=== PATIENT | female | born 1955 | race Caucasian/White ===

== ENCOUNTER 2018-04-02 16:13 | Emergency (ER) | payer SELFPAY ==
--- NOTE | 2018-04-02 17:11 | RAD ---
Procedure: XR CHEST 1 VIEW Exam Date: 04/02/2018 Ordering Provider: Teerll Chanel Clinical Indication: CHEST PAIN Comparison: 03/24/2009 Findings: Heart is not enlarged. Right hilar fullness may represent lymphadenopathy or a mass. No focal lung consolidation. No pleural effusion. No pneumothorax. No acute osseous abnormality. Impression: 1. Right hilar fullness is new compared to prior and may represent lymphadenopathy or possibly a mass. Further evaluation with contrast enhanced CT chest is recommended. Electronically signed by: Jorge A Rodas MD 04/02/2018 5:08 PM DIE CAST OPERATOR
--- NOTE | 2018-04-02 17:12 | ED.PDOC ---
History of Present Illness - General Chief Complaint: Respiratory Problem Time Seen by Provider: 04/02/18 16:29 Source: patient Exam Limitations: no limitations - History of Present Illness Comments: COUGH AND CHEST PAIN AND LOW GRADE FEVER. THE PATIENT ALSO C/O MYALGIAS. SHE VOICES THAT IN 2012 SHE WAS DIAGNOSED WITH CANCER OF THE HEART, LIVER AND SPLEEN AND RECIEVED CHEMOTHERAPY AND NOW IS IN REMISSION. SHE LOCALLY SEES DR. JOHNSON. THE CHEST PAIN SEEMS TO BE ASSOCIATED WITH THE COUGH BUT SHE DESCRIBES IT PRESSURE TYPE. SHE HAS HAD PNEUMONIA IN THE PAST AND DESIRES TO BE SURE THAT THIS IS NOT THE CASE. Timing/Duration: this morning Cough Quality/Degree: dry cough Possible Cause: no prior episodes Improving Factors: nothing Worsening Factors: nothing Associated Symptoms: cough, fever/chills, muscle aches Respiratory Risk Factors: no cause identified Allergies/Adverse Reactions: Allergies Acetaminophen [From Vicodin] Allergy (Verified 04/02/18 18:14) Aspartame Allergy (Verified 04/02/18 18:14) Cephalexin [From Keflex] Allergy (Verified 04/02/18 18:14) Erythromycin Allergy (Verified 04/02/18 18:14) Gentamicin Allergy (Verified 04/02/18 18:14) Hydrocodone Allergy (Verified 04/02/18 18:14) Iodine Allergy (Verified 04/02/18 18:14) Morphine Allergy (Verified 04/02/18 18:14) Penicillins Allergy (Verified 04/02/18 18:14) Shellfish Allergy Allergy (Verified 04/02/18 16:49) Tetracycline Allergy (Verified 04/02/18 18:14) Home Medications: Ambulatory Orders Azithromycin [Zithromax Z-Jamal] 250 mg PO DAILY #6 tab 04/02/18 Review of Systems - Review of Systems Constitutional: States: no symptoms reported, fever EENTM: States: no symptoms reported Respiratory: States: cough, short of breath Cardiology: States: chest pain Gastrointestinal/Abdominal: States: no symptoms reported Genitourinary: States: no symptoms reported Musculoskeletal: States: no symptoms reported Skin: States: no symptoms reported Neurological: States: no symptoms reported Endocrine: States: no symptoms reported Hematologic/Lymphatic: States: no symptoms reported Family Medical History - Family History Mother Family History: No Known Physical Exam - Physical Exam General Appearance: Alert, Well Developed, Well Groomed Eye Exam: bilateral normal ENT Exam: normal ENT inspection Neck: non-tender, full range of motion Respiratory: rhonchi, wheezing Cardiovascular/Chest: normal peripheral pulses, regular rate, rhythm, no edema, no gallop Gastrointestinal/Abdominal: normal bowel sounds, non tender, soft, no organomegaly Extremity: normal range of motion, non-tender, normal inspection, no pedal edema Neurologic: alert, oriented x 3 Skin Exam: normal color Progress - Results/Orders Results/Orders: 04/02/18 16:45 EKG STAT 04/02/18 18:33 Hold Metformin x 48Hrs [id number] Laboratory Results WBC 4.7 K/mm3 (4.8-10.8) L 04/02/18 18:05 RBC 4.77 M/mm3 (4.20-5.40) 04/02/18 18:05 Hgb 12.9 gm/dL (12.0-16.0) 04/02/18 18:05 Hct 39.9 % (36.0-47.0) 04/02/18 18:05 MCV 83.7 fl (81.0-99.0) 04/02/18 18:05 MCH 27.1 pg (27.0-31.0) 04/02/18 18:05 MCHC 32.4 g/dL (33.0-37.0) L 04/02/18 18:05 RDW 15.7 % (11.5-14.5) H 04/02/18 18:05 Plt Count 137 K/mm3 (130-400) 04/02/18 18:05 MPV 7.8 fl (7.40-10.4) 04/02/18 18:05 Absolute Neuts (auto) Not Reportable 04/02/18 18:05 Absolute Lymphs (auto) Not Reportable 04/02/18 18:05 Absolute Monos (auto) Not Reportable 04/02/18 18:05 Absolute Eos (auto) Not Reportable 04/02/18 18:05 Neutrophils % Not Reportable 04/02/18 18:05 Neutrophils % (Manual) 75.0 % (42.0-78.0) 04/02/18 18:05 Lymphocytes % Not Reportable 04/02/18 18:05 Lymphocytes % (Manual) 14.0 % 04/02/18 18:05 Monocytes % Not Reportable 04/02/18 18:05 Monocytes % (Manual) 7.0 % 04/02/18 18:05 Eosinophils % Not Reportable 04/02/18 18:05 Basophils % Not Reportable 04/02/18 18:05 Band Neutrophils 4.0 % (0-2) H 04/02/18 18:05 Platelet Estimate Normal (NORMAL) 04/02/18 18:05 Normal RBC Morphology Normal rbc morph 04/02/18 18:05 Sodium 136 mmol/L (135-145) 04/02/18 18:05 Potassium 4.1 mmol/L (3.6-5.0) 04/02/18 18:05 Chloride 99 mmol/L (101-111) L 04/02/18 18:05 Carbon Dioxide 25 mmol/L (21-31) 04/02/18 18:05 Anion Gap 16.1 (12-18) 04/02/18 18:05 BUN 15 mg/dL (7-18) 04/02/18 18:05 Creatinine 1.11 mg/dL (0.6-1.3) 04/02/18 18:05 BUN/Creatinine Ratio 13.5 (10-20) 04/02/18 18:05 Random Glucose 108 mg/dL (70-105) H 04/02/18 18:05 Serum Osmolality 273.3 mOsm/L (275-295) L 04/02/18 18:05 Calcium 8.8 mg/dL (8.4-10.2) 04/02/18 18:05 Total Bilirubin 0.5 mg/dL (0.2-1.0) 04/02/18 18:05 AST 21 IU/L (10-42) 04/02/18 18:05 ALT 18 IU/L (10-60) 04/02/18 18:05 Alkaline Phosphatase 50 IU/L (42-121) 04/02/18 18:05 Troponin I < 0.02 ng/mL (0.01-0.05) 04/02/18 18:05 B-Natriuretic Peptide 28.0 pg/ml (0-100) 04/02/18 18:05 Serum Total Protein 7.5 gm/dL (6.4-8.2) 04/02/18 18:05 Albumin 3.8 g/dl (3.2-5.5) 04/02/18 18:05 Globulin 3.7 gm/dL (2.3-3.5) H 04/02/18 18:05 Albumin/Globulin Ratio 1.0 (1.1-1.9) L 04/02/18 18:05 Serum HCG, Qual Negative 04/02/18 19:54 THE CHEST X RAY REVEALS A RIGHT PERIHILAR MASS. CT WAS RECOMMENDED THE CT OF THE CHEST REVEALS A MASS ON THE RIGHT HILAR AREA. RADIOLOGIST SAYS MALIGNANCY UNTIL PROVEN OTHERWISE. I HAVE SOPEN AT LENGTH WITH THE PATIENT AND HER . WILL GET COPY OF THE CT AND THE PATIENT SHPOULD SEE DR. GUEVARA ADAM- Departure - Departure Clinical Impression: Mass of hilum, Bronchitis Time of Disposition: 21:44 Disposition: Discharge to Home or Self Care Departure Forms: ED Discharge - Pt. Copy, Patient Portal Self Enrollment Instructions: Acute Bronchitis Referrals: FELIX WELSH [Primary Care Provider] - 1-2 Weeks Prescriptions: Azithromycin [Zithromax Z-Jamal] 250 mg PO DAILY #6 tab Home Medications: Ambulatory Orders Azithromycin [Zithromax Z-Jamal] 250 mg PO DAILY #6 tab 04/02/18 Additional Instructions: CALL DR. GUEVARA IN THE AM FOR APPT.
[2018-04-02] MEDS ORDERED: IBUPROFEN 200 MG TAB ONE (18:13)
[2018-04-02] MEDS ORDERED: IBUPROFEN 200 MG TAB PO ONE (18:15)
[2018-04-02] MEDS ORDERED: ACETAMINOPHEN 500 MG TAB PO ONE (18:33)
--- NOTE | 2018-04-02 20:41 | CT ---
PROCEDURE: Chest w/o Contrast CLINICAL HISTORY: 63 years Female RIGHT HILAR FULLNESS COMPARISON: Chest x-ray 04/02/2018 TECHNIQUE: Contiguous axial images obtained through the chest without IV contrast. Reformatted images obtained. This exam was performed according to our department optimization program which includes automated exposure control, adjustment of the mA and/or kv according to patient size and/or use of iterative reconstruction technique. FINDINGS: Calcification in the aorta and in the coronary arteries. No evidence of pericardial or pleural effusion. There is a multilobular soft tissue mass or masses in the right upper lobe which measures 5.4 x 3.4 cm and appears to be contiguous with hilar adenopathy. Mildly enlarged mediastinal lymph nodes are present. No left hilar adenopathy is noted. There is a complex irregular lesion in the spleen and in the adjacent subphrenic fat. Question atypical hemangioma, sequela of previous hemorrhage or trauma or infection versus malignancy including metastatic focus. IMPRESSION: Multilobular right upper lobe mass which is contiguous with right hilar adenopathy. Findings suggest malignancy until proven otherwise Enlarged right hilar and mediastinal lymph nodes Complex irregular peripherally calcified lesion in the spleen and subphrenic space of uncertain clinical significance. Possibility of metastatic focus or malignancy is not excluded. Consider further evaluation with MRI Electronically signed by: Zina Murdock MD 04/02/2018 8:38 PM PNEUMATIC SYSTEMS OPERATOR
[2018-04-02 21:59] VITALS: BP 123/74; TEMP 99.8; O2SAT 94
== END 2018-04-02 21:58 | disposition home or self-care (01) ==
LOC: ER 16:13
DX: J40 Bronchitis, not specified as acute or chronic (principal); R91.8 Other nonspecific abnormal finding of lung field; Z92.21 Personal history of antineoplastic chemotherapy; Z85.05 Personal history of malignant neoplasm of liver; Z85.09 Personal history of malignant neoplasm of other digestive organs; Z85.89 Personal history of malignant neoplasm of other organs and systems; Z87.01 Personal history of pneumonia (recurrent); Z88.6 Allergy status to analgesic agent; Z88.1 Allergy status to other antibiotic agents; Z88.8 Allergy status to other drugs, medicaments and biological substances; Z91.041 Radiographic dye allergy status; Z88.0 Allergy status to penicillin; Z91.013 Allergy to seafood

== ENCOUNTER → 2020-03-18 | Outpatient (CLI) | payer BC | LOC: BFHH 09:14 | PROVIDERS: ATTEND Emergency Medicine | DX: D72.829 Elevated white blood cell count, unspecified (principal) ==

== ENCOUNTER 2020-03-22 16:11 | Emergency (ER) | payer MEDICARE, BC ==
[2020-03-22] MEDS ORDERED: SODIUM CHLORIDE 0.9% 1000ML 1,000 ML IVS ONE (16:24)
[2020-03-22] MEDS ORDERED: ACETAMINOPHEN 500 MG TAB PO ONE (16:24)
[2020-03-22] MEDS ORDERED: SODIUM CHLORIDE 0.9% (FLUSH) 10 ML SYG IV PRN (16:24)
[2020-03-22] MEDS ORDERED: MEROPENEM 1 GM in SODIUM CHL 0.9% 50ML MIN-BAG+ 50 ML IVPB ONE (16:28)
--- NOTE | 2020-03-22 16:32 | ED.PDOC ---
History of Present Illness - General Time Seen by Provider: 03/22/20 16:17 Source: patient, RN notes reviewed, Vital Signs reviewed, family, old records Exam Limitations: no limitations - History of Present Illness Initial Comments: Pt is a 65 yo female with PMH of lymphoma who has undergone several rounds of chemotherapy, the last was in October 2019, and had stem cell treatment placed in November of 2019. States she was diagnosed with COVID 4 weeks ago and symptoms have resolved. She went to a scheduled appointment with her PCP to receive IVF today and her O2 sat was in 70's and temp of 102 so she was sent to ED for evaluation. Pt states for the past few days she gets very SOB and starts coughing whenever she walks. She denies fever, abdominal pain, dysuria, LIZAMA, stiff neck or CP. States she is on 2L O2 at home continuously. Allergies/Adverse Reactions: Allergies Aspartame Allergy (Verified 04/02/18 18:14) Azithromycin Allergy (Verified 03/22/20 16:31) Cephalexin [From Keflex] Allergy (Verified 04/02/18 18:14) Doxycycline Allergy (Verified 03/22/20 16:31) Erythromycin Allergy (Verified 04/02/18 18:14) Gentamicin Allergy (Verified 04/02/18 18:14) Hydrocodone Allergy (Verified 04/02/18 18:14) Iodine Allergy (Verified 04/02/18 18:14) Morphine Allergy (Verified 04/02/18 18:14) Penicillins Allergy (Verified 04/02/18 18:14) Shellfish Allergy Allergy (Verified 04/02/18 16:49) Tetracycline Allergy (Verified 04/02/18 18:14) Home Medications: Ambulatory Orders Nystatin Suspension [Nystatin] 5 ml MT Q6H 03/22/20 Review of Systems - Review of Systems Constitutional: States: fever, malaise. Denies: chills EENTM: Denies: ear pain, nose congestion, throat pain Respiratory: States: cough, short of breath. Denies: wheezing Cardiology: Denies: chest pain, palpitations, syncope Gastrointestinal/Abdominal: Denies: abdominal pain, nausea, vomiting Genitourinary: Denies: dysuria, frequency, hematuria Musculoskeletal: Denies: back pain, neck pain Skin: Denies: rash Neurological: Denies: headache, numbness All other Systems: Reviewed and Negative Past Medical History (General) - Patient Medical History Hx Cardiac Disorders: Yes - mi Hx Cancer: Yes Family Medical History - Family History Mother Family History: No Known Physical Exam - Physical Exam General Appearance: Alert, Comfortable, Other - Appears older than stated age Ears, Nose, Throat: normal pharynx Neck: non-tender, full range of motion, supple, other - No meningismus Respiratory: chest non-tender, lungs clear, normal breath sounds, no respiratory distress Cardiovascular/Chest: normal peripheral pulses, regular rate, rhythm, no edema Gastrointestinal/Abdominal: non tender, soft, no pulsatile mass Back Exam: no CVA tenderness, no vertebral tenderness Extremity: normal range of motion, non-tender, no pedal edema Neurologic: no motor/sensory deficits, alert, normal mood/affect, oriented x 3 Skin Exam: normal color, warm/dry Progress - Progress Progress: 03/22/20 16:37 Pt presents with fever, hypoxia concerning for sepsis. IVF and antibiotics given per sepsis protocol and will evaluate with labs and imaging. 03/22/20 17:42 Pt feels improved post IVF. BP improved and tachycardia resolved. CXR concerning for pneumonia. Pt has tested positive for COVID here. States she tested positive for COVID four weeks ago and was treated with Remdesivir and is currently being treated for oral and esophageal thrush that she got after taking antibiotics for C Diff 1 month ago. Pt has sepsis, pneumonia and COVID as well as chronic immune suppression. She requests transfer to [facility] as that is where her Oncologist, Dr. Gupta, and other specialists are. I discussed pt with Dr. Iraheta earlier in this visit through patient 's cell phone, he recommended transfer to [facility] and he would consult. Will consult transfer line. 03/22/20 18:32 Pt BP improved. States her usual BP in 100/50. Had one episode of hypotension with SBP 78 that responded to IVF. Awaiting return call from transfer line. 03/22/20 18:40 D/W Dr. Brito via [facility] Transfer line and accepts to [facility]. Requests CTA chest to r/o PE. 03/22/20 19:19 Pt is allergic to IV contrast and will cancel CTA chest. May need VQ scan at accepting facility 03/22/20 19:29 Ua shows 5-10 WBC. Cultures sent. Has received Merrem. - Results/Orders Results/Orders: EKG-sinus tachycardia, rate 103, nml intervals, nonspecific ST abnormality CHEST XRAY FINDINGS: Cardiac silhouette is within normal limits. There are bilateral consolidations. Lung volumes are low. IMPRESSION: Bilateral consolidations. 03/22/20 16:24 EKG Stat Pulse Ox Stat 03/22/20 16:45 BLOOD CULTURE Stat 03/22/20 18:34 URINE CULTURE W/COLONY COUNT Stat Laboratory Results - last 24 hr 03/22/20 03/22/20 03/22/20 16:24 16:35 16:35 WBC 4.0 L RBC 3.17 L Hgb 8.6 L Hct 26.2 L MCV 82.8 MCH 27.2 MCHC 32.8 L RDW 17.3 H Plt Count 79 L MPV 8.9 Absolute Neuts (auto) 3.10 Absolute Lymphs (auto) 0.60 L Absolute Monos (auto) 0.30 Absolute Eos (auto) 0.00 Absolute Basos (auto) 0.00 Neutrophils % 76.2 Lymphocytes % 14.8 L Monocytes % 7.5 Eosinophils % 0.9 L Basophils % 0.6 PT 11.5 H INR 1.16 H PTT (SP) 27.6 D-Dimer, Quantitative 405.0 H Sodium 134 L Potassium 3.0 L Chloride 93 L Carbon Dioxide 29 Anion Gap 15.0 BUN 7 Creatinine 0.75 BUN/Creatinine Ratio 9.3 L Random Glucose 95 Serum Osmolality 266.0 L Lactic Acid Calcium 8.0 L Total Bilirubin 0.9 AST 25 ALT 19 Alkaline Phosphatase 49 Creatine Kinase 24 L CK-MB (CK-2) 0.5 CK-MB (CK-2) % Not Reportable Troponin I 0.02 Serum Total Protein 5.6 L Albumin 2.8 L Globulin 2.8 Albumin/Globulin Ratio 1.0 L Urine Color Urine Appearance Urine pH Ur Specific [place] Urine Protein Urine Glucose (UA) Urine Ketones Urine Blood Urine Nitrite Urine Bilirubin Urine Urobilinogen Ur Leukocyte Esterase Urine RBC Urine WBC Ur Epithelial Cells Urine Bacteria C. difficile Tox (PCR) 03/22/20 03/22/20 03/22/20 16:35 18:15 18:34 WBC RBC Hgb Hct MCV MCH MCHC RDW Plt Count MPV Absolute Neuts (auto) Absolute Lymphs (auto) Absolute Monos (auto) Absolute Eos (auto) Absolute Basos (auto) Neutrophils % Lymphocytes % Monocytes % Eosinophils % Basophils % PT INR PTT (SP) D-Dimer, Quantitative Sodium Potassium Chloride Carbon Dioxide Anion Gap BUN Creatinine BUN/Creatinine Ratio Random Glucose Serum Osmolality Lactic Acid 1.3 0.9 Calcium Total Bilirubin AST ALT Alkaline Phosphatase Creatine Kinase CK-MB (CK-2) CK-MB (CK-2) % Troponin I Serum Total Protein Albumin Globulin Albumin/Globulin Ratio Urine Color Yellow Urine Appearance Clear Urine pH 5.5 Ur Specific [place] 1.015 Urine Protein Negative Urine Glucose (UA) Negative Urine Ketones 15 H Urine Blood Negative Urine Nitrite Positive H Urine Bilirubin Negative Urine Urobilinogen 0.2 Ur Leukocyte Esterase Small H Urine RBC 0 Urine WBC 10-20 H Ur Epithelial Cells 5-10 Urine Bacteria 1+ C. difficile Tox (PCR) 03/22/20 22:05 WBC RBC Hgb Hct MCV MCH MCHC RDW Plt Count MPV Absolute Neuts (auto) Absolute Lymphs (auto) Absolute Monos (auto) Absolute Eos (auto) Absolute Basos (auto) Neutrophils % Lymphocytes % Monocytes % Eosinophils % Basophils % PT INR PTT (SP) D-Dimer, Quantitative Sodium Potassium Chloride Carbon Dioxide Anion Gap BUN Creatinine BUN/Creatinine Ratio Random Glucose Serum Osmolality Lactic Acid Calcium Total Bilirubin AST ALT Alkaline Phosphatase Creatine Kinase CK-MB (CK-2) CK-MB (CK-2) % Troponin I Serum Total Protein Albumin Globulin Albumin/Globulin Ratio Urine Color Urine Appearance Urine pH Ur Specific [place] Urine Protein Urine Glucose (UA) Urine Ketones Urine Blood Urine Nitrite Urine Bilirubin Urine Urobilinogen Ur Leukocyte Esterase Urine RBC Urine WBC Ur Epithelial Cells Urine Bacteria C. difficile Tox (PCR) Cancelled Departure - Departure Clinical Impression: COVID-19, Pancytopenia, Hypokalemia Sepsis Qualifiers: Sepsis type: sepsis due to unspecified organism Sepsis acute organ dysfunction status: with acute organ dysfunction Severe sepsis acute organ dysfunction type: acute respiratory failure Acute respiratory failure type: with hypoxia Severe sepsis shock status: without septic shock Qualified Code(s): A41.9 - Sepsis, unspecified organism Bilateral pneumonia Qualifiers: Pneumonia type: due to unspecified organism Lung location: unspecified part of lung Qualified Code(s): J18.9 - Pneumonia, unspecified organism Acute cystitis Qualifiers: Hematuria presence: without hematuria Qualified Code(s): N30.00 - Acute cystitis without hematuria Time of Disposition: 19:30 Disposition: Transfer to Hospital Condition: Fair Departure Forms: ED Discharge - Pt. Copy, Patient Portal Self Enrollment Referrals: FELIX WELSH [Primary Care Provider] - 1-2 Weeks Home Medications: Ambulatory Orders Nystatin Suspension [Nystatin] 5 ml MT Q6H 03/22/20 Transfer to Outside Facility - Transfer Information Decision to Transfer Date: 03/22/20 Decision to Transfer Time: 17:47 Reason for Transfer: specialized care not available Accepting Provider:: Dr. Brito Accepting Facility: [facility]
[2020-03-22] MEDS ORDERED: ACETAMINOPHEN LIQUID 160 MG/5 ML UD PO ONE (16:40)
--- NOTE | 2020-03-22 17:17 | RAD ---
EXAM DESCRIPTION: Chest,1 View CLINICAL HISTORY: short of breath COMPARISON: 04/02/2018 FINDINGS: Cardiac silhouette is within normal limits. There are bilateral consolidations. Lung volumes are low. IMPRESSION: Bilateral consolidations. Electronically signed by: Sree Monae 03/22/2020 5:15 PM [id number]
[2020-03-22] MEDS ORDERED: SODIUM CHLORIDE 0.9% 500ML 500 ML IVS PRN (18:15)
[2020-03-22] MEDS ORDERED: PROMETHAZINE HCL INJ 12.5 MG in SODIUM CHLORIDE 0.9% 50ML 50 ML IVPB ONE (19:55)
[2020-03-22] MEDS ORDERED: PROMETHAZINE HCL INJ 25 MG/ML VIAL ONE (19:56)
[2020-03-22] MEDS ORDERED: SODIUM CHLORIDE 0.9% 50ML 50 ML ONE (19:58)
[2020-03-22] MEDS ORDERED: NYSTATIN SUSPENSION 500,000/5 ML UD MT ONE (19:59)
[2020-03-22] MEDS ORDERED: SODIUM CHLORIDE 0.9% 1000ML 500 ML IVS ONE (20:16)
[2020-03-22 21:34] VITALS: TEMP 99.5; O2SAT 99
[2020-03-22 22:13] VITALS: BP 89/52
== END 2020-03-22 22:25 | disposition short-term general hospital (02) ==
LOC: ER 16:11
DX: A41.89 Other specified sepsis (principal); U07.1 COVID-19; R65.20 Severe sepsis without septic shock; J96.01 Acute respiratory failure with hypoxia; J18.9 Pneumonia, unspecified organism; N30.00 Acute cystitis without hematuria; E87.6 Hypokalemia; D61.818 Other pancytopenia; R00.0 Tachycardia, unspecified; C85.90 Non-Hodgkin lymphoma, unspecified, unspecified site; I25.2 Old myocardial infarction; Z92.21 Personal history of antineoplastic chemotherapy; Z99.81 Dependence on supplemental oxygen; Z79.899 Other long term (current) drug therapy; Z88.8 Allergy status to other drugs, medicaments and biological substances; Z88.1 Allergy status to other antibiotic agents; Z88.5 Allergy status to narcotic agent; Z91.041 Radiographic dye allergy status
CPT/HCPCS: 36415; 71045; 80053; 81001; 82550; 82553; 83605; 84484; 85025; 85379; 85610; 85730; 87040; 87086; 87324; 87449; 87502; 87635; 93005; A4216; J2185; J2550; J7030; J7040; J7050